=== PATIENT | male | born 1985 | race African-American/Black ===

== ENCOUNTER 2021-03-11 10:44 | Outpatient (CLI) | payer OTHER | END 2021-03-11 18:00 | disposition home or self-care (01) | LOC: LAB 10:44 | DX: Z03.818 Encounter for observation for suspected exposure to other biological agents ruled out (principal) ==

== ENCOUNTER 2021-06-19 08:00 | Outpatient (CLI) | payer OTHER | END 2021-06-19 08:30 | disposition home or self-care (01) | LOC: PPH VACUNA 08:00 | PROVIDERS: ATTEND Emergency Medicine Pediatric Emergency Medicine | DX: Z23 Encounter for immunization (principal) ==